=== PATIENT | male | born 1985 | race Caucasian/White ===

== ENCOUNTER → 2021-03-05 11:57 | Outpatient (CLI) | payer OTHER, SELFPAY | PROVIDERS: PCP Family Medicine; Visit Provider Nurse Practitioner | DX: Z20.822 Contact with and (suspected) exposure to COVID-19 (principal) | CPT/HCPCS: C9803; U0003; U0005 ==

== ENCOUNTER → 2021-03-10 15:10 | Outpatient (CLI) | payer OTHER, SELFPAY | PROVIDERS: Visit Provider Nurse Practitioner Family | DX: Z20.822 Contact with and (suspected) exposure to COVID-19 (principal) | CPT/HCPCS: C9803; U0003; U0005 ==

== ENCOUNTER → 2021-03-16 12:06 | Outpatient (CLI) | payer OTHER, SELFPAY | PROVIDERS: PCP Family Medicine; Visit Provider Nurse Practitioner | DX: Z20.822 Contact with and (suspected) exposure to COVID-19 (principal) | CPT/HCPCS: C9803; U0003; U0005 ==

== ENCOUNTER → 2021-05-21 16:02 | Outpatient (CLI) | payer OTHER, SELFPAY | PROVIDERS: PCP Family Medicine; Visit Provider Nurse Practitioner | DX: Z20.822 Contact with and (suspected) exposure to COVID-19 (principal) | CPT/HCPCS: C9803; U0003; U0005 ==

== ENCOUNTER 2024-08-11 03:15 | Emergency (ER) | payer OTHER, SELFPAY ==
[2024-08-11] VITALS (11 sets, daily range): BP systolic 107–136; BP diastolic 51–92; PULSE 84–97; RESP 11–24; TEMP 36.5; O2SAT 94–100; BMI 29.5; BMI 32.8
--- NOTE | 2024-08-11 03:21 | XR_ITS ---
PROCEDURE INFORMATION: Exam: XR Chest Exam date and time: 08/11/2024 3:26 AM Age: 38 years old Clinical indication: Shortness of breath; Additional info: SOA TECHNIQUE: Imaging protocol: Radiologic exam of the chest. Views: 1 view. COMPARISON: No relevant prior studies available. FINDINGS: Lungs: Lungs are hyperinflated with perihilar peribronchial thickening and basilar interstitial prominence. Mild hazy ill-defined opacity at the right base consistent with atelectasis or mild infiltrate. Pleural spaces: No significant pleural effusions. No pneumothorax. Heart/Mediastinum: Unremarkable. No cardiomegaly. Bones/joints: No acute bony abnormalities. IMPRESSION: Hyperinflation with evidence of bronchitis or reactive airways as well as mild atelectasis or infiltrate at the right base.
--- NOTE | 2024-08-11 03:24 | PC.NURSE ---
Accu check 180 Pt on 2 lpm nasal O2
[2024-08-11] MEDS: IPRATROPIUM/ALBUTEROL 3 ML NEB 9 ML IH (03:25)
[2024-08-11] MEDS: METHYLPREDNISOLONE SOD SUCC 125MG VIAL 125 MG IV (03:25)
--- NOTE | 2024-08-11 03:28 | HMH.EDGENADL ---
Discharge Plan Disposition Patient Disposition: Home, Self-Care Condition: Fair Prescriptions Prescriptions: New prednisone 50 mg tablet 50 mg PO DAILY 4 Days Qty: 4 0RF Referrals Follow up/Referrals: Provider,Referral, MD [Primary Care Provider] - See instructions Activity Restrictions/Add. Instructions Additional Instructions/Restrictions: You were evaluated in the ER and are believed to be appropriate for discharge at this time. Use the provided albuterol inhaler 2 puffs every 4 hours for the next 2 days. After this, take 2 puffs every 6 hours if needed for shortness of breath. Take the prescribed steroids as directed. I recommend he stop smoking tobacco and marijuana. Only take medications prescribed to you as directed. Call your primary care doctor today and make an appointment for immediate reevaluation. Return to the ER with any new, worsening, or otherwise concerning symptoms. Clinical Impressions Clinical Impression: Asthma with exacerbation, Acute hypercapnic respiratory failure, Episode of unresponsiveness Print Language Print Language: Ghanaian Discharge ED Provider: Funmilayo Ponce General Adult HPI General Chief complaint: Shortness of Breath/Dyspnea Stated complaint: SOA Time Seen by Provider: 08/11/24 03:20 Mode of Arrival: EMS Source of Information: Patient Description of Symptoms (Recalled from ER Triage Doc. by RN): Pt states he became short of breath and went into the restroom when he became unresponsive. Pt given narcan by EMS and respirations increased History of Present Illness HPI narrative: 38-year-old male presents to the ER with EMS for concerns of shortness of breath and unresponsive. Patient reports he felt short of breath and went to the restroom where he became unresponsive. EMS reports they found him unresponsive with sonorous shallow respirations in the restroom with very low respiratory rate. He was cyanotic according to EMS. They do report lighting was poor and they were unable to appreciate whether he had constricted or dilated pupils. Patient received Narcan and 1 breathing treatment while EMS was preparing to intubate the patient. He became increasingly responsive after receiving these 2 interventions and his respiratory status improved. His GCS went from an 8 to 15 according to EMS. Fingerstick in route was in the 200s. Patient became rude and belligerent with EMS and refused an IV. On arrival to the ER patient is talking, oriented, GCS 15. He reports he takes Suboxone and used marijuana tonight. He states this is his normal routine. He reports he gets his marijuana from the same place consistently and is not concerned about it being laced with anything. He reports no recent illness, he states he feels fine now. Patient's dad and presented to bedside. They provide similar history to EMS. states that patient got up from bed feeling short of breath and went to the restroom to try to calm himself down. She states he tried to take a breathing treatment but she is unsure if he actually got in him before he passed out and became unresponsive. She also reports he was barely breathing and was turning blue. She states sometimes he has these breathing spells . She also reports that he uses his Suboxone and marijuana from a consistent supplier. She states he uses all medications like he is supposed to. She reports that the 2 of them have been sober from drug use for more than 7 years. She reports no concerns about the patient potentially using anything else. She states the patient has not been sick recently, patient's and dad both report he has not recently had fevers, chills, cough, congestion. No one in the house has been ill recently that they know of. Related Data Previous Rx's ?Medication ?Instructions ?Recorded prednisone 50 mg tablet 50 mg PO DAILY 4 days #4 tabs 08/11/24 Allergies Allergy/AdvReac Type Severity Reaction Status Date / Time No Known Allergies Allergy Unverified 05/20/17 14:43 [facility] Disclaimer: The information contained in this section may have been updated after the patient was seen, as this information can be updated by other users. Social History Smoking Status: Current every day smoker alcohol intake: current current occupational status: employed Travel in the last 8 weeks: None ROS Obtained: Yes Systems reviewed as appropriate & no additional complaints except as documented Per HPI Physical Exam General General appearance: alert, in no apparent distress and obese Head Head exam: atraumatic and normocephalic Eye Eye exam: Present PERRL, EOMI and other (Strabismus) ENT ENT exam: Present mucous membranes moist Neck Neck exam: Present normal inspection and full ROM Chest Chest inspection: Present symmetric chest wall rise Respiratory Respiratory exam: Present wheezes (Breath sounds mildly diminished throughout, end expiratory wheezing present throughout both lung field) and other (94% on 2 L nasal cannula); Absent normal lung sounds bilaterally, respiratory distress or stridor Cardiovascular Cardiovascular exam: Present regular rate and normal rhythm Abdominal Exam Abdominal exam: Present soft; Absent distention or tenderness Extremities Exam Extremities exam: Present full ROM; Absent edema Neurological Exam Neurological exam: Present alert and oriented X3; Absent motor sensory deficit Psychiatric Psychiatric exam: Present normal affect and normal mood Skin Skin exam: Present warm and dry Medical Decision Making Medical Records Medical records reviewed: Yes I reviewed the patient's medical records. Screening: Per USPSTF and CDC recommendations, given the prevalence of disease in our region, it is our hospital?s policy to screen for HIV and viral Hepatitis for all patients aged 18 and over and those with ongoing risk factors. MR Comment: Most recent records in our system are from July 2016, patient had positive opioid and cocaine screening at that time Gagandeep Inquiry Pt receiving controlled substance: No Vital Signs: 08/11/24 03:19 08/11/24 03:35 08/11/24 03:37 Temperature 97.7 F Temperature Source Oral Pulse Rate 87 Pulse Rate [Right Brachial] 94 H 97 H Respiratory Rate 20 24 Blood Pressure Blood Pressure [Right Arm] 136/92 H Blood Pressure Mean [Right Arm] 106 Blood Pressure Source [Right Arm] Automatic Cuff Blood Pressure Position Blood Pressure Position [Right Arm] Sitting 02 Sat by Pulse Oximetry 94 L 98 Oxygen Delivery Method Room Air Simple Mask 08/11/24 03:39 08/11/24 03:45 08/11/24 03:49 Temperature Temperature Source Pulse Rate 90 94 H Pulse Rate [Right Brachial] 89 Respiratory Rate 14 16 24 Blood Pressure 107/51 L 132/83 Blood Pressure [Right Arm] Blood Pressure Mean [Right Arm] Blood Pressure Source [Right Arm] Blood Pressure Position Blood Pressure Position [Right Arm] 02 Sat by Pulse Oximetry 100 95 96 Oxygen Delivery Method Room Air 08/11/24 04:00 08/11/24 04:15 08/11/24 04:30 Temperature Temperature Source Pulse Rate 87 91 H 92 H Pulse Rate [Right Brachial] Respiratory Rate 13 14 11 L Blood Pressure 120/59 L 129/63 122/67 Blood Pressure [Right Arm] Blood Pressure Mean [Right Arm] Blood Pressure Source [Right Arm] Blood Pressure Position Blood Pressure Position [Right Arm] 02 Sat by Pulse Oximetry 97 95 97 Oxygen Delivery Method 08/11/24 04:45 08/11/24 05:22 Temperature 97.7 F Temperature Source Pulse Rate 89 84 Pulse Rate [Right Brachial] Respiratory Rate 11 L 13 Blood Pressure 124/62 111/65 Blood Pressure [Right Arm] Blood Pressure Mean [Right Arm] Blood Pressure Source [Right Arm] Blood Pressure Position Sitting Blood Pressure Position [Right Arm] 02 Sat by Pulse Oximetry 98 Oxygen Delivery Method Room Air Lab Data Lab Results 08/11/24 03:20: WBC 11.1 H, RBC 4.05 L, Hgb 12.2 L, Hct 37.4 L, MCV 92.3, MCH 30.1, MCHC 32.6, RDW 13.1, Plt Count 259, MPV 10.1, Neut % (Auto) 26.4 L, Lymph % (Auto) 60.7 H, [place] % (Auto) 8.2, Eos % (Auto) 3.8, Baso % (Auto) 0.5, Neut # (Auto) 2.9, Lymph # (Auto) 6.7 H, [place] # (Auto) 0.9, Eos # (Auto) 0.4, Baso # (Auto) 0.1, Total Counted 100, Neutrophils % (Manual) 29 L, Lymphocytes % (Manual) 64 H, Eosinophils % (Manual) 7 H, Platelet Estimate Normal, RBC Morphology Normal, PT 10.7, INR 0.95, D-Dimer 0.35, Sodium 135 L, Potassium 3.6, Chloride 103, Carbon Dioxide 21 L, Anion Gap 14.6, BUN 18, Creatinine 1.00, Estimated Creat Clear 150, Estimated GFR 83, Est GFR ( Amer) 101, Glucose 215 H, Calcium 9.2, Magnesium 2.2, Total Bilirubin 0.3, AST 47, ALT 39, Alkaline Phosphatase 66, Troponin I < 0.01, NT-Pro-B Natriuret Pep < 20.0, Total Protein 7.3, Albumin 4.7, Globulin 2.6, Albumin/Globulin Ratio 1.8, Plasma/Serum Alcohol < 10, HCV Ab RADHA w/Rflx PCR Qn Negative, HIV Ag/Ab Combo Qual Negative 08/11/24 03:24: VBG pH 7.17 L, VBG pCO2 51.9 H, VBG pO2 39.5, VBG HCO3 18.6 L, VBG Total CO2 20.2 L, VBG O2 Saturation 63.1, VBG Base Excess -9.8 L, VBG Lactic Acid 3.9 H 08/11/24 03:30: SARS-CoV-2 (PCR) Not detected, Influenza A Untype (PCR) Not detected, Influenza Type B (PCR) Not detected 08/11/24 04:33: VBG pH 7.33, VBG pCO2 42.8, VBG pO2 46.2 H, VBG HCO3 22.1 L, VBG Total CO2 23.4, VBG O2 Saturation 80.3 H, VBG Base Excess -3.9 L, VBG Lactic Acid 1.5 08/11/24 03:20 08/11/24 03:20 Orders (Tests/Meds): ED MEDICATIONS Discontinued Medications Generic Name Dose Route Start Last Admin Trade Name Freq PRN Reason Stop Dose Admin Albuterol Sulfate 2 puff 08/11/24 04:38 08/11/24 04:49 Albuterol-Hfa 90mcg/Puff Inhaler 8gm IH 08/11/24 04:39 2 puff ONCE ONE Administration Albuterol/Ipratropium 9 ml 08/11/24 03:20 08/11/24 03:25 Ipratropium/Albuterol 3 Ml Neb IH 08/11/24 03:21 9 ml ONCE ONE Administration Lactated Ringer's 1,000 mls @ 999 mls/hr 08/11/24 03:33 08/11/24 03:41 Lactated Ringer's 1000 Ml Bag IV 08/11/24 04:33 999 mls/hr .Q1H1M ONE Administration Magnesium Sulfate 2 gm in 50 mls @ 50 mls/hr 08/11/24 04:15 08/11/24 04:23 Magnesium Sulfate 2gm/50ml Premix IV 08/11/24 05:14 50 mls/hr ONCE ONE Administration Methylprednisolone Sodium Succinate 125 mg 08/11/24 03:20 08/11/24 03:25 Methylprednisolone Sod Succ 125mg Vial IV 08/11/24 03:21 125 mg ONCE ONE Administration Miscellaneous 1 unit 08/11/24 04:37 08/11/24 04:49 Aerochamber/Optihaler MC 08/11/24 04:38 1 unit ONCE ONE Administration Naloxone HCl 4 mg 08/11/24 05:08 08/11/24 05:12 Naloxone Hcl 4mg [place] NS 08/11/24 05:09 4 mg ONCE ONE Administration ORDERS Category Date Time Status Consult Monomer Recovery Supervisor [CONS] Routine Cons 08/11/24 04:27 Active CXR --portable [XR chest portable] Stat Exams 08/11/24 03:21 Taken BNP [NT Pro Brain Natriuretic Pep.] Stat Lab 08/11/24 03:20 Completed CBC w/Auto Diff [Complete Blood Count Auto Diff] Stat Lab 08/11/24 03:20 Completed CMP [Comprehensive Metabolic Panel] Stat Lab 08/11/24 03:20 Completed D-Dimer Stat Lab 08/11/24 03:20 Completed Ethanol [Ethyl Alcohol] Stat Lab 08/11/24 03:20 Completed HIV Combo Routine Lab 08/11/24 03:20 Completed Hepatitis C Ab Qual. W/ RFX Routine Lab 08/11/24 03:20 Completed Magnesium Stat Lab 08/11/24 03:20 Completed PT INR [Prothrombin Time INR] Stat Lab 08/11/24 03:20 Completed Rapid PCR Covid and Flu A/B Stat Lab 08/11/24 03:30 Completed Trop I [Troponin I] Stat Lab 08/11/24 03:20 Completed Troponin I Q3H Lab 08/11/24 06:30 Ordered Troponin I Q3H Lab 08/11/24 09:30 Ordered VBG [Venous Blood Gas] Stat RT 08/11/24 03:24 Completed VBG [Venous Blood Gas] Stat RT 08/11/24 04:33 Completed Medical Decision Narrative: In summary, this 38-year-old male with history of illicit substance use reportedly only on Suboxone and marijuana now with a history of asthma which is not at goal therapy presents to the emergency department today with shortness of breath, unresponsiveness which improved after Narcan and single breathing treatment from EMS. On initial evaluation patient is hemodynamically stable, afebrile, is slightly hypoxic on room air with wheezing throughout both lung salazar, no peripheral edema, GCS 15 with no neurologic deficits. Differential diagnosis includes but is not limited to viral syndrome, asthma exacerbation, hypercarbia, syncopal episode, vasovagal syncope, arrhythmia, electrolyte abnormality, ACS, PE, illicit substance use, overdose, electrolyte abnormality, dehydration, kidney dysfunction. Based on these concerns, I ordered serum labs, chest x-ray, cardiac workup, VBG, D-dimer, chest x-ray, urine studies. ECG personally interpreted demonstrates sinus rhythm, rate 86, normal axis, normal AK and QTc, no STEMI. No evidence of arrhythmogenic abnormality. Patient received IV fluids, DuoNebs, Solu-Medrol initially for treatment. Labs personally reviewed demonstrate VBG with pH 7.17, hypercarbia pCO2 51.9, low bicarb, lactic elevated at 3.9. This confirms that patient had both respiratory and metabolic acidosis and supports the theory of poor respiratory effort and gas exchange. On reevaluation after receiving DuoNebs, patient no longer had any wheezing, he was moving good air throughout. He was able to be taken off of oxygen and is saturating 96% on room air. He is breathing comfortably with normal respiratory rate and well-appearing. XR personally interpreted demonstrates no lobar infiltrate, no pleural effusion, no pneumothorax. See radiology read for final interpretation. COVID and flu negative. Nursing went in the room at 0425 to draw a repeat VBG and patient refused stating he wanted to sign out AGAINST MEDICAL ADVICE. I explained to him that he was extremely close to dying based on the results from his VBG and the report from EMS and family. I explained that his near experience was only corrected by the hidalgo intervention of EMS with Narcan and breathing treatments. I explained to him that he had a significant asthma exacerbation going on when he arrived and while he was feeling improved I wanted him to receive the IV magnesium that I ordered and recheck labs to ensure that his lungs had improved adequately. He was refusing these things, however his dad and at bedside encouraged him further and patient consented to additional blood work as well as IV magnesium. Repeat VBG shows improvement. pH is normal, no hypercarbia, lactic has normalized. Patient has not required any further intervention from a respiratory status. Lungs are clear to auscultation bilaterally with good air movement and saturating 98% on room air. He continues to demand to be discharged. He refuses to provide urine sample which is concerning for possible hiding of illicit substance use, however he has capacity to refuse this test and understands the risks. I am reassured by his improvement clinically and his significant lab improvements. He has been on the wet end operator as well as pulse ox throughout his time in the ER and has had good hemodynamics and since receiving treatment for his asthma exacerbation has been in good respiratory status. He did receive albuterol MDI which was administered in the ER and was provided to him to take home. Patient repeatedly denies any illicit substance use but naloxone was provided to him to take home in case there is ever concern for overdose. He is adamant about being discharged and with his now normalized labs I do not believe he meets criteria for admission. I gave the patient explicit instructions on how to use the albuterol MDI inhaler, I provided prescription for steroids to continue to use for the next few days, I gave him instructions on continued symptomatic monitoring and management at home, close follow-up instructions with his primary care physician who he states he has a good relationship with, and he and his family were given strict return precautions for the ER. Patient and family indicated understanding and the patient was discharged in stable condition. Critical Care Critical Care Time Critical Care Time: Yes Attestation: On 08/11/24, the high probability of a clinically significant, sudden or life threatening deterioration of the following system(s) (respiratory) required my full and direct attention, intervention and personal management. The time I documented below is in addition to time spent performing reported procedures but includes the following listed in this critical care notation. Total Time Total Critical Care Time: 35
[2024-08-11 03:33] LABS: VBG Base Excess -9.8 mmol/L (-2.4-2.3); VBG HCO3 18.6 mmol/L (23-30); VBG Oxygen Saturation 63.1 % (50-70); VBG PCO2 51.9 mmol/L (35-51); VBG PO2 39.5 mmol/L (28-40); VBG Total CO2 20.2 mmol/L (23-27)
--- NOTE | 2024-08-11 03:33 | ECG_ITS ---
APPROVED REPORT Exam: Resting ECG HR:86 bpm ECG Measurements Heart Rate 86 AXES WI 167 P 66 QRSd 98 QRS 72 QT 387 T 55 QTc 430 Conclusion SINUS RHYTHM MINIMAL ST DEPRESSION [0.025+ mV ST DEPRESSION] No STEMI Electronically signed by : TERESA RANGEL, 08/11/2024 06:20:41
[2024-08-11 03:35] LABS: Coronavirus 19, PCR Not Detected (NotDetected); Influenza A, PCR Not Detected (NotDetected); Influenza B, PCR Not Detected (NotDetected)
[2024-08-11 03:37] LABS: Basophils # 0.1 K/mm3 (0-0.2); Basophils % 0.5 % (0.1-2.0); Eosinophils # 0.4 K/mm3 (0.0-0.4); Eosinophils % 3.8 % (0.1-12.0); Hematocrit 37.4 % (42.0-52.0); Hemoglobin 12.2 g/dL (14.1-18.0); Lymphocytes # 6.7 K/mm3 (0.7-4.5); Lymphocytes % 60.7 % (10-50); Mean Corpuscular HGB Conc 32.6 g/dL (31.8-35.4); Mean Corpuscular Hemoglobin 30.1 pg (27.0-31.2); Mean Corpuscular Volume 92.3 fl (80-94); Mean Platelet Volume 10.1 fl (7.4-10.4); Monocytes # 0.9 K/mm3 (0.1-1.0); Monocytes % 8.2 % (1.7-9.3); Neutrophils # 2.9 K/mm3 (1.8-7.8); Neutrophils % 26.4 % (37.0-80.0); Platelet Count 259 K/mm3 (142-424); Red Blood Count 4.05 M/mm3 (4.60-6.20); Red Cell Distribution Width 13.1 % (11.5-17.5); White Blood Count 11.1 K/mm3 (4.8-10.8)
[2024-08-11 03:37] LABS: Lactate Venous 3.9 mmol/L (0.4-2.0); VBG PH 7.17 mmol/L (7.31-7.41)
[2024-08-11] MEDS: LACTATED RINGERS 1000ML 1,000 ML 999 ML IV (03:41)
[2024-08-11 03:42] LABS: Albumin Level 4.7 g/dl (3.5-5.0); Chloride 103 mmol/L (98-107); Potassium 3.6 mmoL/L (3.5-5.1); Sodium 135 mmol/L (136-145)
[2024-08-11 03:44] LABS: Blood Urea Nitrogen 18 mg/dl (9-20); Creatinine Clearance Estimated 150 mL/min (50-200); Estimated Glomerular Filt Rate 83 ml/min (>60); GFR (African American) 101 ML/MIN (>60); INR 0.95 (0.9-1.1); Prothrombin Time 10.7 seconds (10.1-12.5)
[2024-08-11 03:45] LABS: Alanine Aminotransferase 39 U/L (12-78); Albumin/Globulin Ratio 1.8 (1.1-1.8); Alkaline Phosphatase 66 U/L (38-126); Anion Gap 14.6 mEq/L (5-15); Aspartate Amino Transferase 47 U/L (17-59); Bilirubin,Total 0.3 mg/dl (0.2-1.3); Calcium 9.2 mg/dl (8.4-10.2); Carbon Dioxide 21 mmol/L (22.0-30.0); Globulin 2.6 g/dL (1.3-3.2); Glucose 215 mg/dl (74-100); Magnesium 2.2 mg/dl (1.6-2.3); Total Protein,Serum 7.3 g/dl (6.3-8.2)
[2024-08-11 03:54] LABS: Ethyl Alcohol < 10 mg/dl (0-10); NT Pro Brain Natriuretic Pep. < 20.0 pg/mL (0-125)
[2024-08-11 03:55] LABS: MANUAL DIFFERENTIAL MANUAL DIFFERENTIAL (MANUAL DIFF)
[2024-08-11 04:02] LABS: D-Dimer 0.35 ug/mL (0.0-0.5)
[2024-08-11 04:09] LABS: Troponin I < 0.01 ng/ml (0.00-0.034)
--- NOTE | 2024-08-11 04:12 | PC.NURSE ---
pt resting in bed, NAD noted, RR even and non labored, skin remains dietz in color, side rails up x2. Pt aware of need for urine for testing and has urinal at bedside
[2024-08-11] MEDS: MAGNESIUM SULFATE IN WATER 2 GM/50 ML PIGGYBACK IV (04:23)
[2024-08-11 04:26] LABS: HIV Combo NEGATIVE (Negative)
[2024-08-11 04:35] LABS: Hepatitis C Ab Qual. W/ RFX NEGATIVE (Negative)
[2024-08-11 04:40] LABS: Lactate Venous 1.5 mmol/L (0.4-2.0); VBG Base Excess -3.9 mmol/L (-2.4-2.3); VBG HCO3 22.1 mmol/L (23-30); VBG Oxygen Saturation 80.3 % (50-70); VBG PCO2 42.8 mmol/L (35-51); VBG PH 7.33 mmol/L (7.31-7.41); VBG PO2 46.2 mmol/L (28-40); VBG Total CO2 23.4 mmol/L (23-27)
[2024-08-11] MEDS: AEROCHAMBER/OPTIHALER 1 UNIT MC (04:49)
[2024-08-11] MEDS: ALBUTEROL-HFA 90MCG/PUFF INHALER 8GM 2 PUFF IH (04:49)
[2024-08-11] MEDS: NALOXONE HCL 4MG SPRAY 4 MG NS (05:12)
--- NOTE | 2024-08-11 05:12 | PC.NURSE ---
narcan pulled and given to patient, instructed patient and family on safe use of medication incase of over dose.
[2024-08-11 05:16] LABS: Eosinophils % 7 % (0-3); Lymphocytes % 64 % (10-50); Neutrophils % 29 % (42-76); Total Cells Counted 100
[2024-08-11 05:17] LABS: Platelet Estimate Normal; RBC Morphology Normal
== END 2024-08-11 05:23 | disposition home or self-care (01) ==
PROVIDERS: Emergency Provider Emergency Medicine
DX: J96.02 Acute respiratory failure with hypercapnia (principal); J45.901 Unspecified asthma with (acute) exacerbation; R40.4 Transient alteration of awareness; Z72.0 Tobacco use
CPT/HCPCS: 71045; 80053; 80320; 82803; 83735; 83880; 84484; 85007; 85025; 85027; 85378; 85610; 86803; 87389; 87636; 93005; 96361; 96365; 96374; 99291; G0480; J2919; J3475; J7120; J7620